=== PATIENT | female | born 2005 | race Caucasian/White ===

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

== ENCOUNTER 2025-01-09 15:37 | Outpatient (CLI) | payer OTHER ==
[2025-01-09 18:45] VITALS: BP 103/66; PULSE 98; RESP 18; TEMP 97.6
--- NOTE | 2025-01-25 20:41 | P.MSEPDOC ---
Presenting Problems - Arrival Data Date of Arrival on Unit: 01/09/25 Time of Arrival on Unit: 15:37 Mode of Transport: Ambulatory - Complaint OB-Reason for Admission/Chief Complaint: Possible Onset of Labor Comment: c/o contractions starting at 0600 pt reports 3-4mins apart. Contractions at this time 6-10mins apart. Medical History - Information : 1 Para: 0 Term: 0 : 0 Abortions: Spontaneous or Elective: 0 Number of Living Children: 0 - Gestational Age Gestational Age by JOSIAH (wks/days): 38 Weeks and 4 Days Review of Systems - Review of Systems Constitutional: No problems Breast: No problems ENT: No problems Cardiovascular: No problems Respiratory: No problems Gastrointestinal: No problems Genitourinary: No problems Musculoskeletal: No problems Neurological: No problems Skin: No problems Vital Signs - Temperature Temperature: 97.6 F Temperature Source: Temporal Artery Scan - Pulse Pulse Oximetery Pulse Rate: 98 Pulse Assessment Method: Pulse Oximetry - Respirations Respiratory Rate: 18 Oxygen Delivery Method: Room Air O2 Sat by Pulse Oximetry: 100 - Blood Pressure Right Arm Blood Pressure: 103/66 Blood Pressure Mean: 78 Blood Pressure Source: Automatic Cuff Medical Screen Scoring - Cervical Exam Dilation (cm): 2.5 Effacement (%): 50 Station: -2 Membranes: Intact - Uterine Contractions Frequency From (mins): 6 Frequency To (mins): 10 Duration From (seconds): 90 Duration To (seconds): 120 Intensity: Moderate Resting: Soft to palpation - Assessment - Baby A Baseline FHR: 125 Heart Rate - NICHD Category: Category I (Normal) NST: Reactive Physician Notification - Physician Notified Physician Notified Date: 01/09/25 Physician Notified Time: 17:30 Physician: Amanda Levi New Order Received: Yes (Discharge home with follow up instructions. IOL for 01/15/25) Maternal Triage Index - Maternal Triage Index Presenting for scheduled procedure w/no complaint: No - Stat/Priority 1 Stat Priority 1: No - Urgent/Priority 2 Urgent Priority 2: No - Prompt/Priority 3 Prompt Priority 3: Yes Criteria Met for Priority 3: c/o contractions 3-4mins apart starting at 0600, rating at 8/10. Disposition - Disposition OB Disposition: Discharge to home Discharge Date: 03/25/25 Discharge Time: 17:50 I agree with the RN Medical Screening Exam: Yes Case reviewed; plan agreed upon as documented in EMR&OBIX.: Yes Diagnosis: FALSE LABOR AT OR AFTER 37 COMPLETED WEEKS OF GESTATION
== END 2025-01-09 17:50 | disposition home or self-care (01) ==
LOC: FBPOP 15:37
PROVIDERS: ATTEND Obstetrics & Gynecology Obstetrics
DX: O47.1 False labor at or after 37 completed weeks of gestation (principal); Z3A.37 37 weeks gestation of pregnancy
CPT/HCPCS: 59025; G0463; 99213

== ENCOUNTER 2025-01-10 23:26 | Outpatient (CLI) | payer OTHER ==
[2025-01-11 01:01] VITALS: BP 117/63; PULSE 96; RESP 16; TEMP 97.7
--- NOTE | 2025-02-24 20:49 | P.MSEPDOC ---
Presenting Problems - Arrival Data Date of Arrival on Unit: 01/10/25 Time of Arrival on Unit: 23:26 Mode of Transport: Ambulatory - Complaint OB-Reason for Admission/Chief Complaint: Rule Out PROM Comment: patient felt gush at 2300 of clear fluid Medical History - Information : 1 Para: 0 Term: 0 : 0 Abortions: Spontaneous or Elective: 0 Number of Living Children: 0 - Gestational Age Gestational Age by JOSIAH (wks/days): 38 Weeks and 6 Days - History Complications: Smoker Review of Systems - Review of Systems Constitutional: No problems Breast: No problems ENT: No problems Cardiovascular: No problems Respiratory: No problems Gastrointestinal: No problems Genitourinary: No problems Musculoskeletal: No problems Neurological: No problems Skin: No problems Vital Signs - Temperature Temperature: 97.7 F Temperature Source: Oral - Pulse Right Brachial Pulse Rate: 96 Pulse Assessment Method: Automatic Cuff - Respirations Respiratory Rate: 16 Oxygen Delivery Method: Room Air O2 Sat by Pulse Oximetry: 99 - Blood Pressure Right Arm Blood Pressure: 117/63 Blood Pressure Mean: 81 Blood Pressure Source: Automatic Cuff Medical Screen Scoring - Cervical Exam Dilation (cm): 3 Effacement (%): 60 Station: -2 Membranes: Intact - Uterine Contractions Frequency From (mins): 5 Frequency To (mins): 8 Duration From (seconds): 70 Duration To (seconds): 90 Intensity: Mild Resting: Soft to palpation - Assessment - Baby A Baseline FHR: 120 Heart Rate - NICHD Category: Category I (Normal) NST: Reactive Physician Notification - Physician Notified Physician Notified Date: 01/11/25 Physician Notified Time: 00:39 Physician: America Flores - Notification Comment Comment: Dr. Flores called with report on patient that presents to triage for rule out SROM. Amnisure negative. Contractions irregular 5-10 plus minutes apart. Category 1 heart tones. Patient comfortable. Patient to be discharged home. Maternal Triage Index - Maternal Triage Index Presenting for scheduled procedure w/no complaint: No - Stat/Priority 1 Stat Priority 1: No - Urgent/Priority 2 Urgent Priority 2: No - Prompt/Priority 3 Prompt Priority 3: No - Non-Urgent/Priority 4 Non-Urgent Priority 4: Yes Criteria Met for Priority 4: 38 5/7 SROM Disposition - Disposition OB Disposition: Discharge to home Discharge Date: 01/11/25 Discharge Time: 00:45 I agree with the RN Medical Screening Exam: Yes Physician's MSE Comment: I have neither seen nor examined the patient Case reviewed; plan agreed upon as documented in EMR&OBIX.: Yes Diagnosis: FALSE LABOR, UNSPECIFIED
== END 2025-01-11 00:45 ==
LOC: FBPOP 23:26
PROVIDERS: ATTEND Obstetrics & Gynecology
DX: O47.1 False labor at or after 37 completed weeks of gestation (principal); O99.333 Smoking (tobacco) complicating pregnancy, third trimester; F17.200 Nicotine dependence, unspecified, uncomplicated; Z3A.38 38 weeks gestation of pregnancy
CPT/HCPCS: 59025; 84112; G0463; 99213

== ENCOUNTER 2025-01-11 20:53 | Outpatient (CLI) | payer OTHER ==
[2025-01-11 22:07] LABS: Appearance,Urine Cloudy (Clear); Bacteria,Urine Rare /hpf; Bilirubin,Urine Negative (Negative); Blood,Urine Negative (Negative); Color,Urine Yellow; Glucose,Urine (UA) 1+ (Negative); Ketones,Urine 1+ (Negative); Leukocyte Esterase,Urine Moderate (Negative); Mucus,Urine Few /hpf; Nitrite,Urine Negative (Negative); Protein,Urine 1+ (Negative); RBC,Urine 2 /hpf (0-5); Specific Gravity,Urine 1.037 (1.001-1.035); Squamous Epithelial Cell,Urine 9 /hpf (0-4); WBC,Urine 2 /hpf (0-5)
[2025-01-11 22:34] LABS: Influenza A Not Detected (Not Detectd); Influenza B Not Detected (Not Detectd); RSV Not Detected (Not Detectd)
[2025-01-11 23:27] VITALS: BP 115/62; PULSE 114; RESP 16; TEMP 97.1
--- NOTE | 2025-01-28 00:23 | P.MSEPDOC ---
Presenting Problems - Arrival Data Date of Arrival on Unit: 01/11/25 Time of Arrival on Unit: 20:53 Mode of Transport: Ambulatory - Complaint OB-Reason for Admission/Chief Complaint: Headache Medical History - Information : 1 Para: 0 Term: 0 : 0 Abortions: Spontaneous or Elective: 0 Number of Living Children: 0 - Gestational Age Gestational Age by JOSIAH (wks/days): 38 Weeks and 6 Days Review of Systems - Review of Systems Constitutional: No problems Breast: No problems ENT: No problems Cardiovascular: No problems Respiratory: No problems Gastrointestinal: No problems Genitourinary: No problems Musculoskeletal: No problems Neurological: No problems Skin: No problems Vital Signs - Temperature Temperature: 97.1 F Temperature Source: Axillary - Pulse Pulse Oximetery Pulse Rate: 114 Pulse Assessment Method: Auscultation - Respirations Respiratory Rate: 16 Oxygen Delivery Method: Room Air O2 Sat by Pulse Oximetry: 98 - Blood Pressure Right Arm Blood Pressure: 115/62 Blood Pressure Mean: 79 Blood Pressure Source: Automatic Cuff Physician Notification - Physician Notified Physician Notified Date: 01/11/25 Physician Notified Time: 22:39 Physician: Amanda Levi New Order Received: Yes (discharge) Maternal Triage Index - Maternal Triage Index Presenting for scheduled procedure w/no complaint: No - Stat/Priority 1 Stat Priority 1: No - Urgent/Priority 2 Urgent Priority 2: No - Prompt/Priority 3 Prompt Priority 3: No - Non-Urgent/Priority 4 Non-Urgent Priority 4: Yes Criteria Met for Priority 4: Patient presents to triage for beeing tired, headache and was in urgent care earlier who sent here to our triage. Disposition - Disposition OB Disposition: Discharge to home I agree with the RN Medical Screening Exam: Yes Case reviewed; plan agreed upon as documented in EMR&OBIX.: Yes Diagnosis: RELATED CONDITIONS, UNSPECIFIED, THIRD TRIMESTER
== END 2025-01-11 23:28 ==
LOC: FBPOP 20:53
PROVIDERS: ATTEND Obstetrics & Gynecology Obstetrics
DX: O26.893 Other specified pregnancy related conditions, third trimester (principal); Z3A.38 38 weeks gestation of pregnancy
CPT/HCPCS: 59025; 81001; 87636; G0463; 99213

== ENCOUNTER 2025-01-14 02:55 | Outpatient (CLI) | payer OTHER ==
[2025-01-14 04:24] VITALS: BP 113/63; PULSE 92; RESP 16; TEMP 97.3
--- NOTE | 2025-02-10 11:34 | P.MSEPDOC ---
Presenting Problems - Arrival Data Date of Arrival on Unit: 01/14/25 Time of Arrival on Unit: 02:53 Mode of Transport: Wheelchair - Complaint OB-Reason for Admission/Chief Complaint: Possible Onset of Labor Comment: pt presents to tr with c/o cntrx since 0000. denies any bleeding or leaking. denies any complications with . pt states she is scheduled for IOL on wednesday. Medical History - Information : 4 Para: 0 Term: 0 : 0 Abortions: Spontaneous or Elective: 0 Number of Living Children: 0 - Gestational Age Gestational Age by JOSIAH (wks/days): 39 Weeks and 2 Days Review of Systems - Review of Systems Constitutional: No problems Breast: No problems ENT: No problems Cardiovascular: No problems Respiratory: No problems Gastrointestinal: No problems Genitourinary: No problems Musculoskeletal: No problems Neurological: No problems Skin: No problems Vital Signs - Temperature Temperature: 97.3 F Temperature Source: Temporal Artery Scan - Pulse Pulse Oximetery Pulse Rate: 92 Pulse Assessment Method: Automatic Cuff - Respirations Respiratory Rate: 16 Oxygen Delivery Method: Room Air O2 Sat by Pulse Oximetry: 97 - Blood Pressure Sitting Blood Pressure: 113/63 Blood Pressure Mean: 79 Blood Pressure Source: Automatic Cuff Medical Screen Scoring - Cervical Exam Dilation (cm): 1.5 Effacement (%): 70 Station: -2 Membranes: Intact - Uterine Contractions Frequency From (mins): 4 Frequency To (mins): 5 Duration From (seconds): 80 Duration To (seconds): 120 Intensity: Mild Resting: Soft to palpation - Assessment - Baby A Baseline FHR: 125 Heart Rate - NICHD Category: Category I (Normal) NST: Reactive Physician Notification - Physician Notified Physician Notified Date: 01/14/25 Physician Notified Time: 03:55 Physician: Bill Mayorga Order Received: Yes - Notification Comment Comment: Patient's significant other at the nurses station requesting for patient to be discharged home. RN went to patient's bedside to speak with patient. RN discussed with patient the plan to recheck her at [address] Ospina for orders, patient states that she feels that her contractions have slowed and eased, she is scheduled for induction tomorrow morning at 0600 and would prefer to go home for now. RN spoke to Dr Mayorga, order to dc. Maternal Triage Index - Maternal Triage Index Presenting for scheduled procedure w/no complaint: No - Stat/Priority 1 Stat Priority 1: No - Urgent/Priority 2 Urgent Priority 2: No - Prompt/Priority 3 Prompt Priority 3: No - Non-Urgent/Priority 4 Non-Urgent Priority 4: Yes Criteria Met for Priority 4: pt presents to tr with c/o cntrx since 0000. denies any bleeding or leaking. denies any complications with . pt states she is scheduled for IOL on wednesday. Disposition - Disposition OB Disposition: Discharge to home I agree with the RN Medical Screening Exam: Yes Physician's MSE Comment: I have neither seen nor examined the patient. Case reviewed; plan agreed upon as documented in EMR&OBIX.: Yes Diagnosis: RELATED CONDITIONS, UNSPECIFIED, THIRD TRIMESTER
== END 2025-01-14 03:55 | disposition home or self-care (01) ==
LOC: FBPOP 02:55
PROVIDERS: ATTEND Obstetrics & Gynecology
DX: O26.893 Other specified pregnancy related conditions, third trimester (principal); Z3A.39 39 weeks gestation of pregnancy
CPT/HCPCS: 59025; G0463; 99213

== ENCOUNTER 2025-01-15 06:15 | Inpatient (IN) | payer OTHER ==
[2025-01-15] MEDS ORDERED: miSOPROStoL 200 MCG TAB PO PRN (06:29)
[2025-01-15] MEDS ORDERED: miSOPROStoL 200 MCG TAB RECTAL PRN (06:29)
[2025-01-15] MEDS ORDERED: TERBUTALINE 1 MG/ML VIAL SQ PRN (06:29)
[2025-01-15] MEDS ORDERED: METHYLERGONOVINE 0.2 MG/ML 1 ML AMP IM PRN (06:29)
[2025-01-15] MEDS ORDERED: OXYTOCIN 10 UNIT/ML 1 ML VIAL IM PRN (06:29)
[2025-01-15] MEDS ORDERED: TRANEXAMIC 1,000 MG/100ML-NACL 1,000 MG in EMPTY BAG 1 BAG IV PRN (06:29)
[2025-01-15] MEDS ORDERED: CARBOPROST TROMETHAMINE 250 MCG/ML 1 ML AMP IM PRN (06:29)
[2025-01-15] MEDS ORDERED: LIDOCAINE 0.5% (PF) 5 MG/ML (50 ML SDV) SQ PRN (06:29)
[2025-01-15] MEDS: OXYTOCIN 30 UNITS/500 ML NS 30 UNIT in SALINE 1 500ML.BAG IV SCH (06:50)
[2025-01-15] MEDS: LACTATED RINGERS 500 ML IV ONE (07:17)
[2025-01-15 07:23] LABS: Basophils # (A) 0.1 k/uL (0-0.2); Basophils % (A) 1 %; Eosinophils # (A) 0.1 k/uL (0-0.7); Eosinophils % (A) 1 %; HCT 31.8 % (34.0-46.0); HGB 9.8 gm/dL (11.4-16.0); Hypochromasia Moderate; Lymphocytes # (A) 2.2 k/uL (1.0-4.8); Lymphocytes % (A) 22 %; MCH 25.4 pg (25.0-35.0); MCHC 30.8 g/dL (31.0-37.0); Mean Platelet Volume 10.2; Monocytes # (A) 0.8 k/uL (0-1.0); Monocytes % (A) 7 %; Neutrophils # (A) 6.9 k/uL (1.3-7.7); Neutrophils % (A) 67 %; Platelet Count 301 k/uL (150-450); Poikilocytosis Slight; RBC 3.86 m/uL (3.80-5.40); WBC 10.4 k/uL (4.0-11.0)
[2025-01-15 07:25] LABS: MCV 82.3 fL (80.0-100.0)
[2025-01-15] MEDS: LACTATED RINGERS 1,000 ML IV SCH (10:09)
[2025-01-15] MEDS: LACTATED RINGERS 500 ML IV SCH (10:23)
[2025-01-15] MEDS ORDERED: fentaNYL (PF) 50 MCG/ML 5 ML AMP ONE (11:05)
[2025-01-15] MEDS ORDERED: SODIUM CHLORIDE 0.9% 250 ML BAG ONE (11:05)
[2025-01-15] MEDS ORDERED: ROPIVACAINE 5 MG/ML 30 ML VIAL ONE (11:05)
--- NOTE | 2025-01-15 19:39 | P.HPOB ---
History of Present Illness H&P Date: 01/15/25 Chief Complaint: IUP at 39+ weeks This is a 19-year-old 1 para 0 at 39 3/7 weeks that presents to labor and delivery for induction of labor. Patient has been receiving routine care which has been essentially uncomplicated. Patient was desirous of elective induction secondary to family dynamic. She has struggled with chronic contractions through the third trimester. She has a history of vape use and states she did cut down significantly with the . No gestational anemia, encouraged to take iron which she declined. On blood work this patient is about of O+, rubella status immune, hepatitis B surface engine negative, HIV negative, RPR is nonreactive, grew beta strep cultures negative. Review of Systems Constitutional: Denies chills, Denies fatigue, Denies fever Ears, nose, mouth and throat: Denies headache Cardiovascular: Reports leg edema Respiratory: Denies dyspnea Gastrointestinal: Denies constipation, Denies diarrhea, Denies nausea, Denies vomiting Genitourinary: Reports Past Medical History Additional Past Medical History / Comment(s): IBS History of Any Multi-Drug Resistant Organisms: None Reported Additional Past Surgical History / Comment(s): tonsils and adnoids removed Past Anesthesia/Blood Transfusion Reactions: No Reported Reaction Past Psychological History: Anxiety Smoking Status: Vaper Past Alcohol Use History: None Reported Past Drug Use History: None Reported Medications and Allergies Home Medications Medication Instructions Recorded Confirmed Type Pedi Mv No.227/Ferrous Sulfate 10 mg PO DAILY 12/24/24 01/15/25 History [Flintstones Complete Chew Tab] Allergies Allergy/AdvReac Type Severity Reaction Status Date / Time No Known Allergies Allergy Verified 01/14/25 03:00 Exam Osteopathic Statement: *. No significant issues noted on an osteopathic structural exam other than those noted in the History and Physical/Consult. Vital Signs Temp Pulse Resp BP Pulse Ox 01/15/25 06:29 96.4 F L 101 H 16 115/67 98 Intake and Output 01/14/25 01/15/25 01/15/25 22:59 06:59 14:59 Other: Weight 72.121 kg Targeted physical exam is performed this date in general this is a well- nourished well-developed female in no acute distress, breathing is nonlabored, heart has a regular rate and rhythm, abdomen is gravid, on cervical exam she is 3/70/-2 station amniotomy is performed clear fluid was obtained. heart tones noted to be category 1 and she is wilberto every 2-3. Results Result Diagrams: 01/15/25 06:41 Abnormal Lab Results - Last 24 Hours (Table) 01/15/25 Range/Units 06:41 Hgb 9.8 L (11.4-16.0) gm/dL Hct 31.8 L (34.0-46.0) % MCHC 30.8 L (31.0-37.0) g/dL Assessment and Plan (1) Term Current Visit: Yes Status: Acute Code(s): Z34.90 - ENCNTR FOR SUPRVSN OF NORMAL , UNSP, UNSP TRIMESTER SNOMED Code(s): 72696989 Plan: Admit to labor and delivery Pitocin induction of labor per protocol Liquids as tolerated She does desire epidural when appropriate
--- NOTE | 2025-01-15 19:42 | P.PROBDLV ---
Vaginal Delivery Note - . Vaginal Delivery Note: Date of service 01/15/2025 Findings viable male delivered at 1922, weight of 7 pounds 9 ounces 19-year-old G1, P0 at 39-3/7 weeks that presents for induction of labor. Patient is admitted and Pitocin induction of labor is begun. Patient underwent amniotomy and clear fluid was obtained. Soon after amniotomy was performed patient became uncomfortable and was noted to be 4 cm. Patient did request epidural. Epidural was placed without difficulty by the anesthesia department. Patient made progress in labor. Patient did progressed to complete dilation. With excellent maternal effort patient had a normal spontaneous vaginal delivery of a viable male at 1922, weight of 7 pounds 9 ounces, Apgars of 7 and 9 at 1 and 5 minutes respectively. A mild shoulder dystocia was noted at the time of delivery reduced with Ines. Double nuchal cord was appreciated and reduced at the perineum. The umbilical was doubly clamped and cut. Placenta was delivered spontaneously intact with a three-vessel cord being noted. Inspection the patient's out of vaginal vault superficial lacerations were appreciated hemostatic nothing necessitating a suture repair. Estimated blood loss 150 cc All counts were noted correct x 2 at the end of the delivery. Patient and infant tolerated delivery well and are resting comfortably
[2025-01-15] MEDS ORDERED: LANOLIN CREAM 1 GM TUBE TOPICAL PRN (19:43)
[2025-01-15] MEDS ORDERED: diphenhydrAMINE 50 MG/ML 1 ML VIAL IVP PRN ×2 (19:43)
[2025-01-15] MEDS ORDERED: ZOLPIDEM 5 MG TAB PO PRN (19:43)
[2025-01-15] MEDS ORDERED: HYDROCORTISONE 2.5% RECTAL CREAM 30 GM TUBE RECTAL PRN (19:43)
[2025-01-15] MEDS ORDERED: diphenhydrAMINE 25 MG CAP PO PRN (19:43)
[2025-01-15] MEDS ORDERED: SIMETHICONE 80 MG CHEWABLE PO PRN (19:43)
[2025-01-15] MEDS ORDERED: diphenhydrAMINE 50 MG CAP PO PRN (19:43)
[2025-01-15] MEDS: BENZOCAINE/MENTHOL SPRAY 1 GM/SPRAY AEROSOL TOPICAL PRN (19:59)
[2025-01-15] MEDS: SENNOSIDES-DOCUSATE SODIUM 1 EACH TAB PO SCH (22:35)
[2025-01-16] MEDS: ACETAMINOPHEN TAB 500 MG TAB PO SCH (03:28)
[2025-01-16] MEDS: IBUPROFEN 800 MG TAB PO SCH (03:29)
[2025-01-16 05:55] LABS: Basophils % (A) 0 %; Eosinophils # (A) 0.1 k/uL (0-0.7); Eosinophils % (A) 0 %; HCT 29.2 % (34.0-46.0); HGB 9.1 gm/dL (11.4-16.0); Hypochromasia Marked; Lymphocytes # (A) 1.9 k/uL (1.0-4.8); Lymphocytes % (A) 12 %; MCH 25.8 pg (25.0-35.0); MCHC 31.3 g/dL (31.0-37.0); MCV 82.2 fL (80.0-100.0); Mean Platelet Volume 11.4; Monocytes # (A) 1.1 k/uL (0-1.0); Monocytes % (A) 8 %; Neutrophils # (A) 11.8 k/uL (1.3-7.7); Neutrophils % (A) 77 %; Platelet Count 241 k/uL (150-450); RBC 3.55 m/uL (3.80-5.40); WBC 15.3 k/uL (4.0-11.0)
[2025-01-16] MEDS: PRENATAL VIT-IRON-FOLIC ACID 1 EACH TABLET PO SCH (07:44)
--- NOTE | 2025-01-16 12:26 | P.PNOBGVD ---
Subjective - Subjective Principal diagnosis: day #1 Interval history: Patient is doing well . She is ambulating and voiding without difficulty. She is tolerating a regular diet without nausea or vomiting. Lochia is moderate. Patient reports: Reports appetite normal, Reports voiding normally, Reports pain well controlled, Reports ambulating normally Vona: doing well Objective - Latest Vital Signs Latest vital signs: Vital Signs Temp Pulse Resp BP Pulse Ox 01/16/25 09:00 98.3 F 76 16 110/76 99 01/16/25 01:45 98.4 F 88 16 101/63 99 01/15/25 21:45 84 16 109/59 01/15/25 21:30 70 16 109/57 01/15/25 21:15 86 16 112/66 01/15/25 21:00 78 16 110/64 01/15/25 20:45 74 16 112/65 01/15/25 20:30 71 16 110/61 01/15/25 20:15 81 16 103/61 01/15/25 20:00 97.9 F 78 16 101/62 01/15/25 19:50 105 H 01/15/25 19:45 96 16 124/68 01/15/25 19:30 105 H 16 124/63 Intake and Output 01/15/25 01/16/25 01/16/25 22:59 06:59 14:59 Intake Total 26.233 Output Total 366 Balance -339.767 Intake: Intake, IV Titration 26.233 Amount Oxytocin 30 Units/500 ml 26.233 Ns 30 unit In Saline 1 500ml.bag @ Per Protocol IV .Q0M [facility] Rx#:[id number] Output: Output, Estimated Blood 150 Loss Amount Output, Quantitative 216 Blood Loss Other: # Voids 2 1 - Exam Extremities: Present: normal, edema Abdomen: Present: normal appearance, soft Uterus: Present: normal, firm - Labs Labs: Abnormal Lab Results - Last 24 Hours (Table) 01/16/25 Range/Units 05:40 WBC 15.3 H (4.0-11.0) k/uL RBC 3.55 L (3.80-5.40) m/uL Hgb 9.1 L (11.4-16.0) gm/dL Hct 29.2 L (34.0-46.0) % Neutrophils # 11.8 H (1.3-7.7) k/uL Monocytes # 1.1 H (0-1.0) k/uL Assessment and Plan (1) Term Current Visit: Yes Status: Acute Code(s): Z34.90 - ENCNTR FOR SUPRVSN OF NORMAL , UNSP, UNSP TRIMESTER SNOMED Code(s): 02494957 (2) Status post vaginal delivery Current Visit: Yes Status: Acute Code(s): YSM5573 - SNOMED Code(s): 43997 8002 Plan: Doing well , plan to continue routine care Anticipate discharge home tomorrow
[2025-01-16] MEDS: FERROUS SULFATE 325 MG TAB PO SCH (16:50)
--- NOTE | 2025-01-17 08:38 | P.DS ---
Providers Date of admission: 01/15/25 06:15 Expected date of discharge: 01/17/25 Attending physician: Amanda Levi Primary care physician: Stated None - Discharge Diagnosis(es) (1) Term Current Visit: Yes Status: Acute (2) Status post vaginal delivery Current Visit: Yes Status: Acute Hospital Course: This is a 19-year-old 1 now para 1 that presented to labor and delivery on 01/15 for scheduled induction of labor at 39-3/7 weeks. Patient had been receiving routine care which had been essentially uncomplicated. Patient was admitted to labor and delivery and Pitocin induction of labor was begun. Patient underwent amniotomy and clear fluid was obtained. Patient did become uncomfortable and request epidural. Epidural was placed without difficulty by the anesthesia department. Patient made good progress toward complete dilation. Once completely dilated patient began pushing and had a normal spontaneous vaginal delivery of a viable male at 1922, weight of 7 pounds 9 ounces, Apgars of 7 and 9 at 1 and 5 minutes respectively. No vaginal lacerations were appreciated after delivery. Patient has overall done well . She is ambulating and voiding without difficulty. She is tolerating a regular diet without nausea or vomiting. She is breast-feeding. She is doing well and plans discharge later today. Patient Condition at Discharge: Good Plan - Discharge Summary New Discharge Prescriptions: No Action Pedi Mv No.227/Ferrous Sulfate [Flintstones Complete Chew Tab] 10 mg PO DAILY Discharge Medication List Pedi Mv No.227/Ferrous Sulfate [Flintstones Complete Chew Tab] 10 mg PO DAILY 12/24/24 [History] Follow up Appointment(s)/Referral(s): Amanda Levi DO [Doctor of Osteopathic Medicine] - 6 Weeks Patient Instructions/Handouts: Vaginal Delivery (GEN), Vaginal Delivery (DC) Activity/Diet/Wound Care/Special Instructions: No tub baths or intercourse until 6 weeks . [id number] ibuprofen 600 mg or 3 tablets every 6 hours as needed for pain. Routine check in 6 weeks. Discharge Disposition: HOME SELF-CARE
[2025-01-17 12:32] VITALS: BP 110/75; PULSE 81; RESP 15; TEMP 98.6
== END 2025-01-17 14:51 | disposition home or self-care (01) | DRG 560 ==
LOC: 4FBP 06:15
PROVIDERS: ADMIT Obstetrics & Gynecology Obstetrics; ATTEND Obstetrics & Gynecology Obstetrics
PROC: 10E0XZZ Delivery of Products of Conception, External Approach (ICD-10-PCS; principal; 2025-01-15)
PROC: 10907ZC Drainage of Amniotic Fluid, Therapeutic from Products of Conception, Via Natural or Artificial Opening (ICD-10-PCS; principal; 2025-01-15)
PROC: 3E033VJ Introduction of Other Hormone into Peripheral Vein, Percutaneous Approach (ICD-10-PCS; principal; 2025-01-15)
DX: O69.81X0 Labor and delivery complicated by cord around neck, without compression, not applicable or unspecified (principal); O99.334 Smoking (tobacco) complicating childbirth; F17.290 Nicotine dependence, other tobacco product, uncomplicated; O70.0 First degree perineal laceration during delivery; O66.0 Obstructed labor due to shoulder dystocia; Z86.59 Personal history of other mental and behavioral disorders; Z3A.39 39 weeks gestation of pregnancy; Z37.0 Single live birth
CPT/HCPCS: 85025; 86850; 86900; 86901